=== PATIENT | male | born 1990 | race Caucasian/White ===

== ENCOUNTER 2022-03-21 11:09 | Outpatient (CLI) | payer OTHER ==
--- NOTE | 2022-03-21 18:18 | XRAY Report ---
PROCEDURE: Cervical Spine 2 View INDICATIONS: MUSCLE SPASM, L TRAPEZIUS MUSCLE TECHNIQUE: 3 view(s) of the cervical spine were acquired. COMPARISON: None. FINDINGS: Bones: No fractures or dislocations to the C7-T1 level. The lateral masses of C1 appear intact on t he odontoid view. No suspicious bony lesions. Loss of the normal cervical lordosis. Mild multilevel degenerative changes with disc height loss and facet arthropathy most pronounced at the mid-lower ce rvical spine. 2 mm retrolisthesis C4 on C5 and C5 on C6, probably degenerative. Soft tissues: No prevertebral soft tissue swelling. IMPRESSION: 1. No acute cervical spine fracture visualized radiographically. 2. Straightening of the normal cervical lordosis, a finding that can be seen in the setting of muscle strain or spasm. 3. Mild degenerative changes of the cervical spine. Reviewed by: Boston Hutton MD on 03/21/2022 6:16 PM PDT Approved by: Boston Hutton MD on 03/21/2022 6:16 PM PDT Station ID: [id number]
== END 2022-03-21 23:59 | disposition home or self-care (01) ==
LOC: DI.N 11:09
PROVIDERS: ATTEND Physician Assistant Medical
DX: M62.830 Muscle spasm of back (principal); M50.30 Other cervical disc degeneration, unspecified cervical region; M47.812 Spondylosis without myelopathy or radiculopathy, cervical region; M43.12 Spondylolisthesis, cervical region

== ENCOUNTER 2024-04-28 09:46 | Outpatient (CLI) | payer OTHER ==
[2024-04-28 12:21] LABS: ALBUMIN 4.6 g/dL (3.2-5.5); ALBUMIN/GLOBULIN RATIO 1.5 (1.0-2.2); ALKALINE PHOSPHATASE 55 IU/L (42-121); ALT ALANINE AMINOTRANSFERASE 23 IU/L (10-60); AST ASPARTATE AMINOTRANSFERASE 17 IU/L (10-42); BILIRUBIN,TOTAL 0.9 mg/dL (0.2-1.0); BUN - BLOOD UREA NITROGEN 10 mg/dL (6-20); CALCIUM 9.8 mg/dL (8.5-10.3); CARBON DIOXIDE - CO2 29 mmol/L (21-32); CHLORIDE 101 mmol/L (101-111); CHOL/HDL RATIO 3.8 (<5.0); CHOLESTEROL 160 mg/dL; GFR - MDRD 85 (>89); GLUCOSE 97 mg/dL (74-104); HDL CHOLESTEROL 42 mg/dL; LDL CHOLESTEROL,CALCULATED 98 mg/dL; LDL/HDL RATIO 2.3 (<3.6); SODIUM 136 mmol/L (135-145); TOTAL PROTEIN 7.7 g/dL (6.4-8.9); TRIGLYCERIDES 100 mg/dL; VLDL CHOLESTEROL 20 mg/dL
[2024-04-28 12:35] LABS: ESTIMATED AVERAGE GLUCOSE 108 mg/dL (70-100); HEMOGLOBIN A1c% 5.4 % (4.27-6.07)
[2024-04-28 12:46] LABS: THYROID STIMULATING HORMONE 2.58 uIU/mL (0.34-5.60)
== END 2024-04-28 09:47 | disposition home or self-care (01) ==
LOC: LAB.N 09:46
PROVIDERS: ATTEND Family Medicine
DX: E66.9 Obesity, unspecified (principal)
CPT/HCPCS: 36415; 80053; 80061; 83036; 83721; 84443